=== PATIENT | female | born 1995 | race Caucasian/White ===

== ENCOUNTER 2020-05-30 23:40 | Inpatient (IN) ==
[2020-05-30] MEDS ORDERED: Famotidine 20 MG/2 ML VIAL IVP PRN (23:42)
[2020-05-30] MEDS ORDERED: Naloxone 0.4 MG/ML INJ IVP PRN (23:42)
[2020-05-30] MEDS ORDERED: *HR* FentaNYL (PF) 100 MCG/2 ML VIAL IVP PRN (23:42)
[2020-05-30] MEDS ORDERED: Lidocaine 1% 20 ML MDV INFILT PRN (23:42)
[2020-05-30] MEDS ORDERED: Ondansetron 4 MG/2 ML VIAL IVP PRN (23:42)
[2020-05-30] MEDS ORDERED: Metoclopramide 10 MG/2 ML VIAL IVP PRN (23:42)
[2020-05-30] MEDS ORDERED: Azithromycin 500 MG in 0.9 % Sodium Chloride 250 ML IVPB ONE (23:42)
[2020-05-31] MEDS: Ringers Solution, Lactated 1,000 ML IVC SCH ×3 (00:05→05:25)
[2020-05-31 00:32] LABS: White Blood Count 9.6 K/mcL (4.3-11.1)
[2020-05-31 00:33] LABS: Basophils % 0.1 %; Eosinophils % 0.4 %; Hematocrit 31.8 % (35.3-44.9); Hemoglobin 10.5 g/dL (11.5-15.4); Immature Granulocytes % 0.5 % (0-4); Lymphocytes # 1.9 K/mcL (0.6-4.6); Lymphocytes % 19.3 %; Mean Corpuscular Hemoglobin 28.1 pg (28.0-33.3); Mean Platelet Volume 10.7 fL (9.4-12.4); Monocytes # 0.6 K/mcL (0.0-1.3); Monocytes % 6.6 %; Platelet Count 165 K/mcL (140-400); Red Blood Count 3.74 M/mcL (3.82-4.97); Red Cell Distribution Width 12.1 % (11.5-14.5); Segmented Neutrophils % 73.1 %
[2020-05-31 00:37] LABS: Amphetamine Screen,Urine Negative ng/mL (Cutoff=1000); Barbiturate Screen,Urine Negative ng/mL (Cutoff=200); Benzodiazepines Screen,Urine Negative ng/mL (Cutoff=200); Cannabinoid Screen,Urine Negative ng/mL (Cutoff = 50); Cocaine Screen,Urine Negative ng/mL (Cutoff= 300); Opiate Screen,Urine Negative ng/mL (Cutoff=300); Phencyclidine Screen,Urine Negative ng/mL (Cutoff=25)
[2020-05-31 01:14] LABS: Rubella IgG Antibody POSITIVE (POSITIVE)
[2020-05-31] MEDS ORDERED: Penicillin G Potassium 5,000,000 UNIT in 0.9 % Sodium Chloride Mini Bag 100 ML IVPB ONE (01:42)
[2020-05-31] MEDS ORDERED: miSOPROStoL 25 MCG TABLET PO SCH (02:00)
[2020-05-31 03:43] LABS: Hepatitis B Surface Antigen Nonreactive (Nonreactive)
[2020-05-31] MEDS ORDERED: EPHEDrine 50 MG/ML VIAL IVP PRN (04:11)
[2020-05-31] MEDS ORDERED: Ropivacaine/PF 0.2% 20 ML VIAL EP ONE (04:11)
[2020-05-31] MEDS ORDERED: *HR* FentaNYL (PF) 100 MCG/2 ML VIAL EP ONE (04:11)
[2020-05-31] MEDS ORDERED: *HR* FentaNYL (PF) 100 MCG/2 ML VIAL ONE (04:13)
[2020-05-31] MEDS ORDERED: Epidural Premix (fent/bupiv) 110 ML EP ONE (04:15)
[2020-05-31] MEDS ORDERED: Epidural Premix (fent/bupiv) 110 ML EP SCH (04:15)
[2020-05-31] MEDS ORDERED: Oxytocin 20 units/ LR 1000 mL 20 UNIT/1,000 ML BAG IVC ONE ×2 (05:23→17:05)
[2020-05-31] MEDS: Penicillin G Potassium 2,500,000 UNIT/105 ML MLS IVPB SCH ×3 (05:27→13:33)
[2020-05-31] MEDS ORDERED: Oxytocin 20 units/ LR 1000 mL 20 UNIT/1,000 ML BAG IVC SCH ×2 (05:30→17:05)
[2020-05-31] MEDS ORDERED: Methylergonovine 0.2 MG/ML AMPUL IM ONE (14:28)
[2020-05-31] MEDS ORDERED: Rho Immune Globulin 1,500 UNIT SYRINGE IM PRN (17:05)
[2020-05-31] MEDS ORDERED: Acetaminophen 325 MG TABLET PO PRN (17:05)
[2020-05-31] MEDS ORDERED: Sennosides 8.6 MG TABLET PO PRN (17:05)
[2020-05-31] MEDS ORDERED: Benzocaine/Menthol 56 GM AEROSOL SPRAY TP PRN (17:05)
[2020-05-31] MEDS ORDERED: Measles/Mumps/Rubella Vacc 0.5 ML VIAL SQ PRN (17:05)
[2020-05-31] MEDS: Ibuprofen 600 MG TABLET PO PRN (23:02)
[2020-06-01 04:58] LABS: Basophils % 0.1 %; Hematocrit 26.4 % (35.3-44.9); Hemoglobin 8.8 g/dL (11.5-15.4); Immature Granulocytes % 0.8 % (0-4); Lymphocytes # 1.7 K/mcL (0.6-4.6); Lymphocytes % 11.3 %; Mean Corpuscular HGB Conc 33.3 g/dL (31.6-35.5); Mean Corpuscular Hemoglobin 28.3 pg (28.0-33.3); Mean Corpuscular Volume 84.9 fL (83.0-100.0); Mean Platelet Volume 10.3 fL (9.4-12.4); Monocytes # 0.9 K/mcL (0.0-1.3); Monocytes % 5.8 %; Neutrophils # 12.3 K/mcL (1.6-8.9); Platelet Count 154 K/mcL (140-400); Red Blood Count 3.11 M/mcL (3.82-4.97); Red Cell Distribution Width 12.2 % (11.5-14.5)
[2020-06-01] MEDS: Ibuprofen 600 MG TABLET PO PRN (05:16)
[2020-06-01 07:55] VITALS: BP 115/71
[2020-06-01] MEDS ORDERED: Lidocaine -MPF 1% 2 ML VIAL INFILT ONE (08:16)
[2020-06-01] MEDS ORDERED: Neosporin OINT 15 GM TUBE TP SCH (08:30)
[2020-06-01] MEDS ORDERED: Prenatal Vit/FA 1 EACH TABLET PO SCH (09:00)
== END 2020-06-01 12:10 | disposition home or self-care (01) | DRG 768 ==
LOC: 1NENULAB 23:40 → 1NENUOBS 05-31 16:43
PROVIDERS: ADMIT Student in an Organized Health Care Education/Training Program; ATTEND Student in an Organized Health Care Education/Training Program